=== PATIENT | male | born 1975 | race Caucasian/White ===

== ENCOUNTER 2020-05-31 11:12 | Emergency (ER) | payer OTHER ==
[2020-05-31 12:08] LABS: BASOPHILS % (AUTO) 0.3 %; EOSINOPHILS # (AUTO) 0.4 10^3/uL (0.0-0.7); EOSINOPHILS % (AUTO) 5.8 %; HGB - HEMOGLOBIN 14.4 g/dL (14.0-18.0); LYMPHOCYTES % (AUTO) 29.7 %; MEAN CORPUSCULAR HGB CONC 34.3 g/dL (32.0-36.0); MEAN CORPUSCULAR VOLUME 90.5 fL (80.0-94.0); MEAN PLATELET VOLUME 10.3 fL (7.4-11.4); MONOCYTES # (AUTO) 0.5 10^3/uL (0.0-1.0); MONOCYTES % (AUTO) 7.8 %; NEUTROPHILS # (AUTO) 3.7 10^3/uL (1.5-6.6); NEUTROPHILS % (AUTO) 56.1 %; PLT - PLATELET COUNT 234 10^3/uL (130-450); RED BLOOD COUNT 4.64 10^6/uL (4.70-6.10); RED CELL DISTRIBUTION WIDTH 12.8 % (12.0-15.0); WHITE BLOOD COUNT 6.6 x10^3/uL (4.8-10.8)
[2020-05-31 12:18] LABS: ALBUMIN 3.9 g/dL (3.2-5.5); ALBUMIN/GLOBULIN RATIO 1.2 (1.0-2.2); CALCIUM 9.1 mg/dL (8.5-10.3); TOTAL PROTEIN 7.2 g/dL (6.7-8.2)
--- NOTE | 2020-05-31 12:20 | XRAY Report ---
PROCEDURE: Chest 1 View X-Ray INDICATIONS: Chest Pain TECHNIQUE: One view of the chest was acquired. COMPARISON: None FINDINGS: Surgical changes and devices: None. Lungs and pleura: No pleural effusions or pneumothorax. Lungs are clear. Mediastinum: Mediastinal contours appear normal. Heart size is normal. Bones and chest wall: No suspicious bony lesions. Overlying soft tissues appear unremarkable. IMPRESSION: No acute cardiopulmonary process demonstrated radiographically. Reviewed by: Ash Mann MD on 05/31/2020 11:19 AM [facility] Approved by: Ash Mann MD on 05/31/2020 11:19 AM [facility] Station ID: [id number]
[2020-05-31] MEDS ORDERED: LIDOCAINE VISCOUS 2% 15 ML UDC MM STA (12:24)
[2020-05-31] MEDS ORDERED: MAG HYDROX/AL HYDROX/SIMETH 30 ML UDC PO STA (12:24)
--- NOTE | 2020-05-31 12:25 | ED Physician Documentation ---
PD HPI CHEST PAIN - Stated complaint Stated Complaint: CHEST PX - Chief complaint Chief Complaint: Cardiac - History obtained from History obtained from: Patient (44-year-old gentleman gets food stuck a lot in his esophagus. Today he was eating a banana and felt like he got stuck with retrosternal pressure. He tried to drink some water and then immediately vomited it back up. He feels a little better now. He is never had an upper endoscopy.) Review of Systems Ten Systems: 10 systems reviewed and negative Constitutional: denies: Fever, Chills Respiratory: denies: Dyspnea, Cough, Hemoptysis, Wheezing PD PAST MEDICAL HISTORY - Past Medical History Past Medical History: Yes Cardiovascular: High cholesterol Respiratory: Sleep apnea, CPAP use Psych: Depression - Past Surgical History Past Surgical History: Yes Ortho: Carpal Tunnel surgery HEENT: Myringotomy (tubes), Tonsil/Adenoidectomy - Present Medications Home Medications: Ambulatory Orders Medication Instructions Recorded Confirmed Aspirin 81 mg PO DAILY 01/25/20 05/31/20 Colchicine 0.6 mg PO TID #3 capsule 01/25/20 05/31/20 Loratadine [Claritin] 10 mg PO DAILY 01/25/20 05/31/20 Sertraline HCl [Zoloft] 150 mg PO DAILY 01/25/20 05/31/20 Topiramate [Topamax] 10 mg PO BID 01/25/20 05/31/20 busPIRone [Buspar] 150 mg PO BID 01/25/20 05/31/20 Omeprazole 40 mg PO DAILY #30 capsule. 05/31/20 - Allergies Allergies/Adverse Reactions: Allergies Allergy/AdvReac Type Severity Reaction Status Date / Time No Known Drug Allergies Allergy Verified 05/31/20 11:17 - Social History Does the pt smoke?: No Smoking Status: Never smoker Does the pt drink ETOH?: No Does the pt have substance abuse?: No - Immunizations Immunizations are current?: Yes - POLST Patient has POLST: No PD ED PE NORMAL - Vitals Vital signs reviewed: Yes - General General: Alert and oriented X 3, No acute distress - HEENT HEENT: PERRL, EOMI - Neck Neck: Supple, no meningeal sign, No bony TTP - Cardiac Cardiac: RRR, No murmur - Respiratory Respiratory: No respiratory distress, Clear bilaterally - Abdomen Abdomen: Non tender - Back Back: No CVA TTP, No spinal TTP - Derm Derm: Normal color, Warm and dry - Extremities Extremities: No edema, No calf tenderness / cord - Neuro Neuro: Alert and oriented X 3, Normal speech Results - Vitals Vitals: Vital Signs - 24 hr 05/31/20 05/31/20 05/31/20 11:17 11:41 12:01 Temperature 36.4 C L Heart Rate 85 81 81 Respiratory 18 17 20 Rate Blood Pressure 134/85 H 140/77 H 136/79 H O2 Saturation 96 97 95 Oxygen O2 Source Room air - EKG (time done) 1118 Rate: Rate (enter#) (82) Rhythm: NSR [place]: Normal Intervals: Normal OK QRS: Normal Ischemia: Non specific changes. No: ST elevation c/w ischemia, ST depression - Labs Labs: Laboratory Tests 05/31/20 05/31/20 05/31/20 11:55 11:55 11:55 WBC 6.6 RBC 4.64 L Hgb 14.4 Hct 42.0 MCV 90.5 MCH 31.0 MCHC 34.3 RDW 12.8 Plt Count 234 MPV 10.3 Neut # (Auto) 3.7 Lymph # (Auto) 2.0 [place] # (Auto) 0.5 Eos # (Auto) 0.4 Baso # (Auto) 0.0 Absolute Nucleated RBC 0.00 Nucleated RBC % 0.0 Sodium 137 Potassium 3.4 L Chloride 105 Carbon Dioxide 24 Anion Gap 8.0 BUN 18 Creatinine 1.0 Estimated GFR (MDRD) 81 L Glucose 153 H Calcium 9.1 Total Bilirubin 1.0 AST 24 ALT 29 Alkaline Phosphatase 59 Troponin I High Sens 2.5 Total Protein 7.2 Albumin 3.9 Globulin 3.3 Albumin/Globulin Ratio 1.2 Lipase 21 L PD MEDICAL DECISION MAKING - ED course ED course: 44-year-old gentleman with what sounds like an esophageal food impaction. He tolerated a GI cocktail followed by oral fluids here. This is a recurrent problem for him and discussed with him that he needs to follow-up for upper endoscopy. Departure - Departure Disposition: 01 Home, Self Care Clinical Impression: Esophageal disease Condition: Good Record reviewed to determine appropriate education?: Yes Instructions: ED Foreign Body Esophageal Rslv Follow-Up: Elisabeth Williamson MD [Provider Admit Priv/Credential] - Prescriptions: Omeprazole 40 mg PO DAILY #30 capsule. Comments: Seems reasonable to follow-up with a surgeon for consideration of upper endoscopy. Also I am going to put you on an antacid until then in case it stomach acid causing scarring. Call the surgeon today or tomorrow to arrange for an appointment.
[2020-05-31 13:24] VITALS: BP 147/83
== END 2020-05-31 13:15 | disposition home or self-care (01) ==
LOC: ED 11:12
DX: T18.128A Food in esophagus causing other injury, initial encounter (principal); X58.XXXA Exposure to other specified factors, initial encounter; R07.9 Chest pain, unspecified; Z79.82 Long term (current) use of aspirin
CPT/HCPCS: 71045; 80053; 83690; 84484; 85025; 93005; 99284; A9270

== ENCOUNTER 2020-08-12 14:44 | Outpatient (CLI) | payer OTHER, BC ==
--- NOTE | 2020-08-12 16:51 | XRAY Report ---
PROCEDURE: Shoulder 2 View LT INDICATIONS: LEFT SHOULDER PAIN TECHNIQUE: 2 views of the shoulder were acquired. COMPARISON: None. FINDINGS: Bones: No fractures or dislocations. No suspicious bony lesions. Visualized ribs appear intact. M ild periarticular osteophyte formation at the, clavicular joint. Severe periarticular osteophyte form ation at the glenohumeral joint with a large hook osteophyte extending inferiorly from the inferomedi al aspect of the humeral head, measuring 20 mm. Soft tissues: No suspicious soft tissue calcifications. IMPRESSION: Osteoarthritis associated with glenohumeral hook osteophyte. No acute fracture. No osseo us lesion. If symptoms and/or clinical suspicion for pathology continue, further assessment with repe at plain films, or advanced imaging (e.g., CT, MRI, or bone scan) is recommended for further assessme nt. Reviewed by: rFancy Castillo MD on 08/12/2020 4:49 PM PST Approved by: Francy Castillo MD on 08/12/2020 4:49 PM PST Station ID: [id number]
== END 2020-08-12 23:59 | disposition home or self-care (01) ==
LOC: DI.N 14:44
PROVIDERS: ATTEND Family Medicine
DX: S46.012A Strain of muscle(s) and tendon(s) of the rotator cuff of left shoulder, initial encounter (principal); M19.012 Primary osteoarthritis, left shoulder

== ENCOUNTER 2021-04-18 07:37 | Outpatient (CLI) | payer OTHER, BC ==
--- NOTE | 2021-04-18 11:03 | MRI Report ---
PROCEDURE: Shoulder LT W/O INDICATIONS: PAIN IN LEFT SHOULDER TECHNIQUE: Noncontrast oblique coronal T2 fast spin echo with fat saturation, oblique sagittal T1 spin echo and T2 fast spin echo with fat saturation, axial T1 spin echo and T2 fast spin echo with fat saturation t hrough the shoulder. COMPARISON: None. Findings: Supraspinatus: Mild to moderate tendinopathy with small partial articular surface tear (series 601, i mage 16). Infraspinatus: Mild to moderate tendinopathy with small partial articular surface tears (series 601, image 19). Subscapularis: Mild tendinopathy with interstitial tear. Teres minor: No evidence of tear. Labrum: Deficiency of the anterior labrum, compatible with remote tear/degenerative change. Biceps tendon: No evidence of subluxation or tear. Circumferential fluid signal, concerning for tenos ynovitis. Acromioclavicular joint: Normal alignment. Minimal arthrosis. Muscle: No significant atrophy. Bones: T2 hyperintense/T1 hypointense signal with contour irregularity and fibrocystic change of the glenoid, compatible with degenerative/remote traumatic injury. A large osteophyte extends from the inferior aspect of the humeral head. Miscellaneous: Small glenohumeral joint effusion, which ascends into the superior subscapularis recess. Trace subacromial/subdeltoid bursal fluid. No intra-articular bodies. Intact coracoclavicular ligament. IMPRESSION: 1. Kknk-[id number] supraspinatus and infraspinatus tendinopathy with small partial articular surface tears. 2. Mild subscapularis tendinopathy with interstitial tear. 3. Circumferential fluid of the biceps tendon, concerning for tenosynovitis. 4. Advanced osteoarthrosis of the glenohumeral articulation. Reviewed by: Gary Faust MD on 04/18/2021 11:02 AM PDT Approved by: Gary Faust MD on 04/18/2021 11:02 AM PDT Station ID: [id number]
== END 2021-04-18 07:38 | disposition home or self-care (01) ==
LOC: DI 07:37
PROVIDERS: ATTEND Nurse Practitioner Family
DX: M25.512 Pain in left shoulder (principal); M19.012 Primary osteoarthritis, left shoulder; M75.102 Unspecified rotator cuff tear or rupture of left shoulder, not specified as traumatic; S46.812A Strain of other muscles, fascia and tendons at shoulder and upper arm level, left arm, initial encounter

== ENCOUNTER 2021-08-18 08:00 | Outpatient (CLI) | payer BC, OTHER ==
[2021-08-18 18:05] LABS: BASOPHILS % (AUTO) 0.4 %; EOSINOPHILS # (AUTO) 0.3 10^3/uL (0.0-0.7); EOSINOPHILS % (AUTO) 4.3 %; HCT - HEMATOCRIT 46.7 % (42.0-52.0); HGB - HEMOGLOBIN 15.6 g/dL (14.0-18.0); LYMPHOCYTES # (AUTO) 2.1 10^3/uL (1.5-3.5); LYMPHOCYTES % (AUTO) 30.4 %; MEAN CORPUSCULAR HEMOGLOBIN 30.9 pg (27.0-31.0); MEAN CORPUSCULAR HGB CONC 33.4 g/dL (32.0-36.0); MEAN CORPUSCULAR VOLUME 92.5 fL (80.0-94.0); MEAN PLATELET VOLUME 10.9 fL (7.4-11.4); MONOCYTES # (AUTO) 0.5 10^3/uL (0.0-1.0); MONOCYTES % (AUTO) 6.6 %; PLT - PLATELET COUNT 257 10^3/uL (130-450); RED BLOOD COUNT 5.05 10^6/uL (4.70-6.10); RED CELL DISTRIBUTION WIDTH 12.6 % (12.0-15.0); WHITE BLOOD COUNT 6.8 x10^3/uL (4.8-10.8)
[2021-08-18 18:16] LABS: ALBUMIN 4.2 g/dL (3.2-5.5); ALBUMIN/GLOBULIN RATIO 1.2 (1.0-2.2); ALKALINE PHOSPHATASE 57 IU/L (42-121); ALT ALANINE AMINOTRANSFERASE 39 IU/L (10-60); AST ASPARTATE AMINOTRANSFERASE 26 IU/L (10-42); BILIRUBIN,TOTAL 0.6 mg/dL (0.2-1.0); BUN - BLOOD UREA NITROGEN 19 mg/dL (6-20); CALCIUM 9.3 mg/dL (8.5-10.3); CARBON DIOXIDE - CO2 29 mmol/L (21-32); CHLORIDE 103 mmol/L (101-111); CREATININE 0.9 mg/dL (0.6-1.2); GFR - MDRD 91 (>89); GLUCOSE 103 mg/dL (70-100); POTASSIUM 4.4 mmol/L (3.5-5.0); SODIUM 138 mmol/L (135-145); TOTAL PROTEIN 7.6 g/dL (6.7-8.2)
[2021-08-18 18:26] LABS: THYROID STIMULATING HORMONE 3.85 uIU/mL (0.34-5.60)
[2021-08-18 18:57] LABS: CRP - C-REACTIVE PROTEIN < 1.0 mg/dL (0-1.0)
[2021-08-18 20:33] LABS: ESTIMATED AVERAGE GLUCOSE 114 mg/dL (70-100); HEMOGLOBIN A1c% 5.6 % (4.27-6.07)
== END 2021-08-18 23:59 ==
LOC: LAB.N 08:00
PROVIDERS: ATTEND Registered Nurse
DX: I95.1 Orthostatic hypotension (principal); Z20.822 Contact with and (suspected) exposure to COVID-19
CPT/HCPCS: 36415; 80053; 83036; 84443; 85025; 85651; 86140

== ENCOUNTER 2022-07-03 14:20 | Outpatient (CLI) | payer BC, OTHER | END 2022-07-03 14:21 | disposition home or self-care (01) | LOC: SC 14:20 | PROVIDERS: ATTEND Nurse Practitioner Family | DX: G47.33 Obstructive sleep apnea (adult) (pediatric) (principal); R09.02 Hypoxemia; F32.A Depression, unspecified | CPT/HCPCS: 95806 ==

== ENCOUNTER 2022-07-07 15:59 | Outpatient (CLI) | payer BC, OTHER ==
--- NOTE | 2022-07-07 16:25 | SLEEP CARE CONSULTATION ---
Information from patient questionnaire entered by Ariane Vasquez. I have reviewed and concur with the information entered by Ariane Vasquez. This document represents the service I personally performed and the decisions made by me, Debbie Cleary ARNP. History of Present Illness Service Date and Time: 07/07/2022 1559 Initial [place] Sleepiness Scale score: 15 (06/02/2022) Current [place] Sleepiness Scale score: 17 (07/07/22) Additional HPI information: LU YEAGER returns for follow up and results of the recently performed home sleep study. I explained the pathophysiology behind obstructive sleep apnea. We then spent quite a bit of time discussing different treatment options. For mild obstructive sleep apnea, surgery and oral appliance are alternatives to nasal CPAP therapy but in moderate or severe cases, nasal CPAP is the most effective and reliable treatment. Because apnea is primarily in supine position, then positional management therapy could be effective. Methods discussed such as positioning with pillows to prevent supine sleep. I reviewed the impact of weight changes on sleep apnea and strongly recommended losing weight. After some discussion, the patient opted to go with the nasal CPAP therapy. Nasal autoCPAP set at 4-15 cmH20 will be ordered with rationale explained. A manual titration study will be ordered if unable to find optimal pressure with office adjustments. I explained how CPAP machine works and what to expect when using the machine. Using CPAP every night in order to get used to it was emphasized. Patient advised to put CPAP mask on before getting into bed so as not to fall asleep without CPAP. To assist acclimation to CPAP use, it could also be used for a short time during day while reading or watching TV. The patient was instructed to call the CPAP supplier to discuss any mechanical problem that may occur. If the mask given is uncomfortable or is difficult to keep on through the night even with adjustment, contact the CPAP supplier as many will replace with another mask style if notified before 30 days. If snoring or perceives is not getting enough air or too much air from the machine, notify this office. Patient counseled not drink alcohol less than 4 hours before bedtime as it can increase snoring and apnea. Patient was cautioned about risks of drowsy driving until sleepiness symptoms resolve. Sleep Study - Results Type of Sleep Study: Home sleep study (COMPLETED 07/03/22) Prior sleep studies: Yes ([employer] ) Year and Where: 2009 Polysomnography/Home Sleep Study results: Physician Impression: The quality of the study is good. The length of the study is adequate (> 240 minutes). Please also see the tabulated and graphic data. 1. Obstructive Sleep Apnea-Hypopnea (ICD-10 G47.33), moderate, with an AHI of 20.6/hr and ivis SaO2 of 80%. During the study, the patient had 47 apneas (47 obstructive, 0 central, 0 mixed) and 111 hypopneas. The longest episode lasted 102.5 seconds. The respiratory events occurred more frequently during supine sleep (supine AHI was 26.9 and non-supine, 5.72). 2. Hypoxemia (ICD-10 R09.02), mild, with the lowest oxygen saturation of 80 % and 31.0 minutes with SaO2 under 90%. Baseline oxygen saturation was normal (Average oxygen saturation was 92%). Allergies and Home Medications Drug allergies reviewed: Yes (NKDA) Home medication list reviewed: Yes (no changes) Review of Systems Review of systems same as previous: Yes (no changes) Physical Exam Vital signs obtained and entered by: ARIANE Bauman MA Blood Pressure: 122/70 (LEFT ARM) Cuff size: regular Heart Rate: 80 O2 Saturation: 96 Height: 6 ft 1 in Weight: 296 lb Body Mass Index: 39.0 BMI Classification: Obese Impression and Plan 1. Obstructive Sleep Apnea-Hypopnea Syndrome, moderate, with lowest oxygen saturation of 80%. Obviously this is the cause of the patients symptoms of unrefreshed sleep, and excessive daytime sleepiness. Positive pressure therapy could benefit depression and gastric reflux. As mentioned above, the patient will be started on nasal autoCPAP therapy with pressure set at 4-15 cmH2O. Compliance guidelines also reviewed. A copy of compliance guidelines will be given for reference at check out. Because the apnea is more severe supine, I instructed to avoid sleeping supine using pillow positioning until able to start CPAP use. * Nasal auto CPAP therapy, pressure at 4-15 cm H2O. * Attempt to lose weight. * Avoid alcohol consumption near bedtime. * Avoid supine sleep until using CPAP. * The patient is again cautioned about driving until sleepiness completely resolves. * Return one month after CPAP obtained. I will assess response to therapy and compliance at that time. Counseling Topics: Weight loss health impact Visit Type: In Office Time Spent with Patient (minutes): 20 Provider Statement: I spent 100% of the Face to Face Visit with the patient with greater than 50% spent counseling the patient and coordination of care.
[2022-07-07 16:28] VITALS: BP 122/70
== END 2022-07-07 16:00 | disposition home or self-care (01) ==
LOC: SC 15:59
PROVIDERS: ATTEND Nurse Practitioner Family
DX: G47.33 Obstructive sleep apnea (adult) (pediatric) (principal); E66.9 Obesity, unspecified; Z68.39 Body mass index [BMI] 39.0-39.9, adult
CPT/HCPCS: 99212; 99213

== ENCOUNTER 2022-09-20 16:23 | Outpatient (CLI) | payer BC, OTHER ==
--- NOTE | 2022-09-20 16:56 | SLEEP CARE CONSULTATION ---
Information from patient questionnaire entered by Stevie Vasquez. I have reviewed and concur with the information entered by Stevie Vasquez. This document represents the service I personally performed and the decisions made by me, Debbie Cleary ARNP. History of Present Illness Service Date and Time: 09/20/2022 1623 Previous diagnosis: Moderate, Obstructive Sleep Apnea-Hypopnea Syndrome AHI: 20.6 (in 2022) Reason for follow up: first compliance Equipment type: CPAP (RESMED Airsense 11, s/u 07/2022) Equipment obtained from: Other ([facility], getting supplies) Mask style: Full face Mask brand: Respironics (Dreamwear) Backup mask available: No (other mask) Last cushion change: 1 week Prior sleep studies: Yes ([employer] ) Year and Where: 2009 Type of Sleep Study: Home sleep study (COMPLETED 07/03/22) HPI additional information: LU YEAGER was diagnosed to have moderate, AHI 20.6, obstructive sleep apnea- hypopnea syndrome and returned today for CPAP therapy first compliance follow- up. Sleep Study - Results Type of Sleep Study: Home sleep study (COMPLETED 07/03/22) Prior sleep studies: Yes ([employer] ) Year and Where: 2009 CPAP Compliance Data - Data Reviewed with Patient Average duration of nightly device use: 5 HRS 43 MINS Compliance rate %: 80 (08/20/22-09/18/22; 28/30 days used) Current pressure setting (cmH2O): 4-15 (median 6.3, avg 8.9, max 10.1) Average residual AHI: 3.6 Central apnea: 0.3 Obstructive apnea: 1.8 Hypopnea: 1.4 Subjective Patient concerns: reports: mask leak noise, other (pressure/pain in right ear in last few weeks). denies: aerophagia, mask discomfort, air blowing in eyes, condensation in mask/hose, nasal congestion, dry mouth, nose, throat, epistaxis Observed to snore while using device: No Current pressure setting perceived as: comfortable On therapy, patient: reports: sleeping better, awakening more refreshed, being more awake and alert during the day, more rested overall. denies: drowsiness while driving Initial [place] Sleepiness Scale score: 15 (06/02/2022) Current [place] Sleepiness Scale score: 15 (09/20/22) Allergies and Home Medications Known drug allergies: No Drug allergies reviewed: Yes Home medication list reviewed: Yes (no changes) Allergy and home medication list: Allergies No Known Drug Allergies Allergy (Verified 09/19/22 16:08) Review of Systems Review of systems same as previous: No (right side ear pain) Physical Exam Vital signs obtained and entered by: STEVIE Bauman MA Blood Pressure: 126/82 (LEFT ARM) Cuff size: regular Heart Rate: 81 O2 Saturation: 98 Height: 6 ft 1 in (PER PT) Weight: 290 lb (PER PT) Body Mass Index: 38.2 BMI Classification: Obese Impression and Plan 1. Obstructive Sleep Apnea-Hypopnea Syndrome, moderate, with good treatment compliance and good apnea control. On CPAP therapy, the patient has better sleep quality and is more rested overall. He has been feeling like it is hard to breathe in mask at beginning of night. I will increase ramp starting pressure to 6 cmH2O for patient comfort. The patients pressure will be changed to autoCPAP 8-10 cmH20 to reflect pressures being used. Patient advised to contact me if pressure change is uncomfortable so that it can be adjusted. He has been having some pain in his right ear for last couple weeks. He states that he has year round allergies. I discussed with him that the increase in ear pressure could be some fluid in the inner ear causing increase in ear pressure. I advised him to try a decongestant with his antihistamines to reduce congestions. He may also use a nasal steroid spray to reduce inflammation. If he has no changes he may follow up with his PCP or an ENT specialist for further evaluation. He voiced understanding. Goals for apnea control discussed. Patient's apnea severity and rationale for treatment to reduce apnea, improve sleep quality and reduce cardiovascular and cerebrovascular events was reviewed. I also reviewed the benefit of consistent device use of CPAP for gastric reflux and depression. 2. Obesity, unspecified. Currently patients BMI is 38.2. Obesity increases the risk of apnea, CPAP pressure requirements and overall health risks especially cardiovascular and diabetes. Thus patient is advised to lose weight. * Change auto CPAP pressure to 8-10 cmH2O * Increase ramp starting pressure to 6 cmH2O * Notify me if snoring with mask or feeling that the pressure is too much or too little * Attempt to lose weight * Call this office if any problems using CPAP * Return for follow up in 1-2 months, or sooner if concerns arise Counseling Topics: Spare mask, Weight loss health impact Visit Type: In Office Time Spent with Patient (minutes): 22 Provider Statement: I spent 100% of the Face to Face Visit with the patient with greater than 50% spent counseling the patient and coordination of care.
[2022-09-20 16:57] VITALS: BP 126/82
== END 2022-09-20 16:24 | disposition home or self-care (01) ==
LOC: SC 16:23
PROVIDERS: ATTEND Nurse Practitioner Family
DX: G47.33 Obstructive sleep apnea (adult) (pediatric) (principal); E66.9 Obesity, unspecified; Z68.38 Body mass index [BMI] 38.0-38.9, adult
CPT/HCPCS: 99212; 99213

== ENCOUNTER 2022-11-08 00:06 | Emergency (ER) | payer BC, OTHER ==
--- NOTE | 2022-11-08 01:02 | XRAY Report ---
PROCEDURE: Chest 1 View X-Ray INDICATIONS: soa TECHNIQUE: One view of the chest was acquired. COMPARISON: Chest x-ray 09/30/2019. FINDINGS: Surgical changes and devices: None. Lungs and pleura: No pleural effusions or pneumothorax. Lungs are clear. Mediastinum: Mediastinal contours appear normal. Heart size is normal. Bones and chest wall: No suspicious bony lesions. Overlying soft tissues appear unremarkable. IMPRESSION: No acute cardiopulmonary disease. Reviewed by: López Estrada MD on 11/08/2022 1:01 AM PDT Approved by: López Estrada MD on 11/08/2022 1:01 AM PDT Station ID: [id number]
[2022-11-08 01:48] LABS: B. PARAPERTUSSIS- RESP PCR PAN NOT DETECTED; B. PERTUSSIS- RESP PCR PANEL NOT DETECTED; C. PNEUMONIAE- RESP PCR PANEL NOT DETECTED; CORONAVIRUS 229E-RESP PCR NOT DETECTED; CORONAVIRUS HKU1-RESP PCR NOT DETECTED; CORONAVIRUS NL63-RESP PCR NOT DETECTED; CORONAVIRUS OC43-RESP PCR NOT DETECTED; HUMAN METAPNEUMOVIRUS NOT DETECTED; INFLUENZA A- RESP PCR PANEL NOT DETECTED; INFLUENZA B - RESP PCR PANEL NOT DETECTED; M. PNEUMONIAE- RESP PCR PANEL NOT DETECTED; PARAINFLUENZA VIRUS 1 NOT DETECTED; PARAINFLUENZA VIRUS 2 NOT DETECTED; PARAINFLUENZA VIRUS 3 NOT DETECTED; PARAINFLUENZA VIRUS 4 NOT DETECTED; RHINOVIRUS/ENTEROVIRUS NOT DETECTED; RSV- RESP PCR PANEL NOT DETECTED; SARS-CoV-2 -RESP PCR PANEL NOT DETECTED
--- NOTE | 2022-11-08 05:11 | ED Physician Documentation ---
PD HPI DYSPNEA - Stated complaint Stated Complaint: SOA/COUGH/BLACKOUT - Chief complaint Chief Complaint: Resp - History obtained from History obtained from: Patient - Additional information Additional information: Patient c/o few days of cough, wheezing, mild dyspnea. Was recently prescribed albuterol (few weeks ago) by PMD, but this has not been providing symptomatic relief today. Denies fever. Cough is nonproductive. Review of Systems Constitutional: denies: Fever, Chills, Sweats Cardiac: denies: Chest pain / pressure, Palpitations, Pedal edema, Calf pain Respiratory: reports: Dyspnea, Cough, Wheezing. denies: Hemoptysis Musculoskeletal: denies: Extremity swelling PD PAST MEDICAL HISTORY - Past Medical History Cardiovascular: High cholesterol Respiratory: Sleep apnea, CPAP use Psych: Depression - Past Surgical History Past Surgical History: Yes Ortho: Carpal Tunnel surgery HEENT: Myringotomy (tubes), Tonsil/Adenoidectomy - Present Medications Home Medications: Ambulatory Orders Medication Instructions Recorded Confirmed Loratadine [Claritin] 10 mg PO DAILY 01/25/20 09/20/22 Sertraline HCl [Zoloft] 150 mg PO DAILY 01/25/20 09/20/22 Topiramate [Topamax] 10 mg PO BID 01/25/20 09/20/22 busPIRone [Buspar] 150 mg PO BID 01/25/20 09/20/22 Omeprazole 40 mg PO DAILY #30 capsule. 05/31/20 09/20/22 Ascorbic Acid [Vitamin C] See Rx Instructions .ROUTE .COMPLEX 06/02/22 09/20/22 Cetirizine [ZyrTEC] See Rx Instructions .ROUTE .COMPLEX 06/02/22 09/20/22 Cholecalciferol (Vitamin D3) See Rx Instructions .ROUTE .COMPLEX 06/02/22 09/20/22 [Vitamin D3] Multivit-Min/FA/Lycopen/Lutein See Rx Instructions .ROUTE .COMPLEX 06/02/22 09/20/22 [Centrum Silver Men Tablet] [place]-3/Dha/Epa/Fish Oil [Fish Oil See Rx Instructions .ROUTE .COMPLEX 06/02/22 09/20/22 1,000 mg Softgel] Rosuvastatin Calcium [Crestor] See Rx Instructions .ROUTE .COMPLEX 06/02/22 09/20/22 Ubidecarenone [Co Q-10] See Rx Instructions .ROUTE .COMPLEX 06/02/22 09/20/22 Benzonatate [Tessalon] 200 mg PO TID PRN #20 cap 11/08/22 predniSONE [Deltasone] 40 mg PO DAILY 3 Days #6 tablet 11/08/22 - Allergies Allergies/Adverse Reactions: Allergies Allergy/AdvReac Type Severity Reaction Status Date / Time No Known Drug Allergies Allergy Verified 11/08/22 00:26 - Social History Does the pt smoke?: No Smoking Status: Never smoker Does the pt drink ETOH?: No Does the pt have substance abuse?: No - Immunizations Immunizations are current?: Yes - POLST Patient has POLST: No PD ED PE NORMAL - Vitals Vital signs reviewed: Yes - General General: Alert and oriented X 3, No acute distress, Well developed/nourished - Cardiac Cardiac: RRR, No murmur - Respiratory Respiratory: No respiratory distress, Clear bilaterally Results - Vitals Vitals: Oxygen O2 Source Room air - Labs Labs: Laboratory Tests 11/08/22 00:49 Nasal Adenovirus (PCR) NOT DETECTED Nasal B. parapertussis DNA (PCR) NOT DETECTED Nasal Coronavir 229E PCR NOT DETECTED Nasal Coronavir HKU1 PCR NOT DETECTED Nasal Coronavir NL63 PCR NOT DETECTED Nasal Coronavir OC43 PCR NOT DETECTED Nasal Enterovir/Rhinovir PCR NOT DETECTED Nasal Influenza B PCR NOT DETECTED Nasal Influenza A PCR NOT DETECTED Nasal Parainfluen 1 PCR NOT DETECTED Nasal Parainfluen 2 PCR NOT DETECTED Nasal Parainfluen 3 PCR NOT DETECTED Nasal Parainfluen 4 PCR NOT DETECTED Nasal RSV (PCR) NOT DETECTED Nasal B.pertussis DNA PCR NOT DETECTED Nasal C.pneumoniae (PCR) NOT DETECTED [place] Human Metapneumo PCR NOT DETECTED Nasal M.pneumoniae (PCR) NOT DETECTED Nasal SARS-CoV-2 (PCR) NOT DETECTED - Rads (name of study) chest xray Relevant Findings:: Prelim report reviewed, EMP independent interpretation of test (I reviewed these images and my interpretation is no active/acute disease including no evidence of pneumonia, bronchitis, pneumothorax), See rad report PD Medical Decision Making - ED course Complexity details: reviewed results, considered differential, d/w patient ED course: Description of symptoms s/o bronchitis with bronchospasm. Lungs are CTA bilaterally with good airflow. Unremarkable CXR and respiratory PCR panel is negative for the viruses tested. Results reviewed with patient , return precautions discussed. Although his pulmonary exam is clear, given his description of cough s/o bronchospasm, he is given prednisone in ED and prescribed short course of QD prednisone. He is also given tessalon perles with rx for same Departure - Departure Disposition: 01 Home, Self Care Clinical Impression: Dyspnea Condition: Good Instructions: ED Dyspnea Shortness of Breath Prescriptions: predniSONE [Deltasone] 40 mg PO DAILY 3 Days #6 tablet Benzonatate [Tessalon] 200 mg PO TID PRN #20 cap PRN Reason: Cough Comments: There were no abnormalities on the chest x-ray, and the nasal swab was negative for the viruses that were tested (including COVID, influenza, RSV, and several other viruses). The cause of your symptoms is not apparent at this time. You are given a cough suppressant (Tessalon) and a steroid (prednisone) in the emergency department, and prescriptions for these medications have been electronically submitted to the [facility] pharmacy in [place]. Discharge Date/Time: 11/08/22 05:27
[2022-11-08 05:12] VITALS: BP 134/76
[2022-11-08] MEDS ORDERED: predniSONE 20 MG TABLET PO STA (05:20)
[2022-11-08] MEDS ORDERED: BENZONATATE 100 MG CAPSULE PO STA (05:20)
== END 2022-11-08 05:27 | disposition home or self-care (01) ==
LOC: ED 00:06
DX: R05.9 Cough, unspecified (principal); R06.2 Wheezing; R06.00 Dyspnea, unspecified; Z20.822 Contact with and (suspected) exposure to COVID-19
CPT/HCPCS: 71045; 87633; 99284; A9270; J7512

== ENCOUNTER 2022-11-17 15:27 | Outpatient (CLI) | payer BC, OTHER ==
--- NOTE | 2022-11-17 15:56 | Sleep Patient Instructions ---
Sleep Center Visit Summary - Patient Visit Information Reason for Visit: Two month follow up of CPAP therapy - Patient Instructions Additional Instructions: You were here for follow up of CPAP therapy. You will be continued on CPAP therapy with pressure at 5-7 cmH2O. Please let us know if the pressure change is uncomfortable and we can make further adjustments of the pressure. An order to look into Oral Appliance for sleep apnea treatment was given to you with a list of dentists in area. Please call us to let us know when to do the follow up once you have the oral appliance. You should follow up with sleep care in 3 months. You may contact us sooner for any questions or concerns. - Clinic Information Contact: [facility] [address] [place] [address] [email or web address] T: [phone]
--- NOTE | 2022-11-17 16:03 | SLEEP CARE CONSULTATION ---
Information from patient questionnaire entered by Ariane Vasquez. I have reviewed and concur with the information entered by Ariane Vasquez. This document represents the service I personally performed and the decisions made by , Debbie Cleary ARNP. History of Present Illness Service Date and Time: 11/17/2022 1527 Previous diagnosis: Moderate, Obstructive Sleep Apnea-Hypopnea Syndrome AHI: 20.6 (in 2022) Reason for follow up: other (2 MONTH F/U) Equipment type: CPAP (RESMED Airsense 11, s/u 07/2022) Equipment obtained from: Other ([facility], getting supplies) Mask style: Full face Mask brand: Respironics (Dreamwear) Backup mask available: Yes (other mask) Last cushion change: over a month Prior sleep studies: Yes ([facility] ) Year and Where: 2009 Type of Sleep Study: Home sleep study (COMPLETED 07/03/22) HPI additional information: LU YEAGER was diagnosed to have moderate, AHI 20.6, obstructive sleep apnea- hypopnea syndrome and returned today for CPAP therapy two month follow-up. Sleep Study - Results Type of Sleep Study: Home sleep study (COMPLETED 07/03/22) Prior sleep studies: Yes ([facility] ) Year and Where: 2009 CPAP Compliance Data - Data Reviewed with Patient Average duration of nightly device use: 5 hours 8 minutes Compliance rate %: 58 (45/60 days used) Current pressure setting (cmH2O): 8-10 Average residual AHI: 3.4 Central apnea: 0.3 Obstructive apnea: 1.7 Hypopnea: 1.3 Subjective Missed days of use due to: reports: other (sharp ear pain on right side when using CPAP) Patient concerns: reports: mask discomfort, air blowing in eyes, dry mouth, nose, throat. denies: aerophagia, mask leak noise, condensation in mask/hose, nasal congestion, epistaxis Observed to snore while using device: No Current pressure setting perceived as: comfortable On therapy, patient: denies: sleeping better, more rested overall, drowsiness while driving Initial [place] Sleepiness Scale score: 15 (06/02/2022) Current [place] Sleepiness Scale score: 18 (11/17/22) Allergies and Home Medications Known drug allergies: No Drug allergies reviewed: Yes Home medication list reviewed: Yes (no changes) Allergy and home medication list: Allergies No Known Drug Allergies Allergy (Verified 11/16/22 15:24) Review of Systems Review of systems same as previous: Yes (had right ear cleaned out and had some prednisone for inflammation) Physical Exam Vital signs obtained and entered by: ARIANE Bauman MA Blood Pressure: 128/80 (LEFT ARM) Cuff size: regular Heart Rate: 80 O2 Saturation: 98 Height: 6 ft 1 in (PER PT) Weight: 303 lb 6.4 oz Weight change since last visit: 13 lb gain Body Mass Index: 40.0 BMI Classification: Morbidly Obese Impression and Plan 1. Obstructive Sleep Apnea-Hypopnea Syndrome, moderate, with fair treatment compliance and good apnea control. Lu had continued to have sharp pain in his right ear when using the CPAP. He did see his primary and went to the walk in in [place]. They cleaned out his ear and gave him 5 days of oral steroid to reduce inflammation. He has also been using Flonase daily with no improvement of his ear pain when using the CPAP. I will reduce the pressure to see if this will reduce ear pain. The patients pressure will be changed to autoCPAP 5-7 cmH20 for patient comfort. Patient advised to contact me if pressure change is uncomfortable so that it can be adjusted. Goals for apnea control discussed. Also, after discussing other options, he was advised to sleep only on his sides when unable to use the CPAP since he had minimal elevation of sleep apnea on his sides when sleeping during his sleep study. He would also like to see if he could get an oral appliance covered by his insurance to treat his sleep apnea. He will be given a prescription and list of dentists in area to explore this option. If he still cannot tolerate CPAP use an oral appliance may be the best option for him. He was also advised that a visit with an ENT specialist could be beneficial for further evaluation of why he only gets pain in right ear with cpap use. He voiced understanding. Patient's apnea severity and rationale for treatment to reduce apnea, improve sleep quality and reduce cardiovascular and cerebrovascular events was reviewed. I also reviewed the benefit of consistent device use of CPAP for gastric reflux and depression. 2. Obesity, unspecified. Currently patients BMI is 40. Obesity increases the risk of apnea, CPAP pressure requirements and overall health risks especially cardiovascular and diabetes. Thus patient is advised to lose weight. * Change auto CPAP pressure to 5-7 cmH2O * Postional therapy when unable to use CPAP * Oral appliance * Notify me if snoring with mask or feeling that the pressure is too much or too little * Attempt to lose weight * Call this office if any problems using CPAP * Return for follow up in 3 months, or sooner if concerns arise Counseling Topics: Sleeping position, Spare mask, Weight loss health impact Prescriptions: Other (Oral appliance) Visit Type: In Office Time Spent with Patient (minutes): 23 Provider Statement: I spent 100% of the Face to Face Visit with the patient with greater than 50% spent counseling the patient and coordination of care.
[2022-11-17 16:10] VITALS: BP 128/80
== END 2022-11-17 15:28 | disposition home or self-care (01) ==
LOC: SC 15:27
PROVIDERS: ATTEND Nurse Practitioner Family
DX: G47.33 Obstructive sleep apnea (adult) (pediatric) (principal); E66.01 Morbid (severe) obesity due to excess calories; Z68.41 Body mass index [BMI] 40.0-44.9, adult
CPT/HCPCS: 99212; 99213

== ENCOUNTER 2023-03-31 15:09 | Emergency (ER) | payer BC, OTHER ==
--- NOTE | 2023-03-31 15:24 | ED Physician Documentation ---
PD HPI DYSPNEA - Stated complaint Stated Complaint: SOA - Chief complaint Chief Complaint: Resp - History obtained from History obtained from: Patient - History of Present Illness Timing - onset: How many days ago (has had increased dyspnea and feeling wheezing for several days increasing, but more notable just this afternoon without obvious environmental trigger and no URI symptoms. He used son's inhaler - improvement. He had prior albuterol and Flovent MDIs but ran out. PCP moved and awaiting new PCP appt.) Timing - onset during: Rest Timing - details: Gradual onset, Still present (lessened from MDI use earlier but still feeling wheezy.) Inciting event(s): Out of meds. No: URI, Immobilization/travel, Emotional event Associated symptoms: Wheezing. No: Fever, Cough, Hemoptysis, Chest pain / discomfort, Bilateral edema Similar symptoms before: Diagnosis (environmental allergies and he says he can't even mow the grass due to it. Has asthma with prior Rx of ALbuterol and FLovent that help. Takes antihistamines regualry as well. No apparent trigger today but ahs been out of Flovent for month or more due to change in PCP at his [facility].) Recently seen: Clinic (has been few months since last appt as his PCP left and awaiting new PCP appt.) Review of Systems Constitutional: denies: Fever, Chills Nose: reports: Rhinorrhea / runny nose, Congestion Throat: denies: Sore throat Cardiac: denies: Chest pain / pressure Respiratory: reports: Dyspnea, Wheezing. denies: Cough PD PAST MEDICAL HISTORY - Past Medical History Cardiovascular: High cholesterol Respiratory: Sleep apnea, CPAP use Psych: Depression - Past Surgical History Past Surgical History: Yes Ortho: Carpal Tunnel surgery HEENT: Myringotomy (tubes), Tonsil/Adenoidectomy - Present Medications Home Medications: Ambulatory Orders Medication Instructions Recorded Confirmed Loratadine [Claritin] 10 mg PO DAILY 01/25/20 03/09/23 Sertraline HCl [Zoloft] 150 mg PO DAILY 01/25/20 03/09/23 Topiramate [Topamax] 10 mg PO BID 01/25/20 03/09/23 busPIRone [Buspar] 150 mg PO BID 01/25/20 03/09/23 Omeprazole 40 mg PO DAILY #30 capsule. 05/31/20 03/09/23 Ascorbic Acid [Vitamin C] See Rx Instructions .ROUTE .COMPLEX 06/02/22 03/09/23 Cetirizine [ZyrTEC] See Rx Instructions .ROUTE .COMPLEX 06/02/22 03/09/23 Cholecalciferol (Vitamin D3) See Rx Instructions .ROUTE .COMPLEX 06/02/22 03/09/23 [Vitamin D3] Mv-Min/Folic/K1/Lycopen/Lutein See Rx Instructions .ROUTE .COMPLEX 06/02/22 03/09/23 [Centrum Silver Men Tablet] [place]-3/Dha/Epa/Fish Oil [Fish Oil See Rx Instructions .ROUTE .COMPLEX 06/02/22 03/09/23 1,000 mg Softgel] Rosuvastatin Calcium [Crestor] See Rx Instructions .ROUTE .COMPLEX 06/02/22 03/09/23 Ubidecarenone [Co Q-10] See Rx Instructions .ROUTE .COMPLEX 06/02/22 03/09/23 Benzonatate [Tessalon] 200 mg PO TID PRN #20 cap 11/08/22 03/09/23 predniSONE [Deltasone] 40 mg PO DAILY 3 Days #6 tablet 11/08/22 03/09/23 Albuterol Sulf [Ventolin Hfa 2 - 3 puffs INH QID #1 each 03/31/23 Inhaler] Fluticasone 220 Mcg [Flovent] 1 inh PO BID #12 gm 03/31/23 dexAMETHasone [Decadron] 4 mg PO DAILY #7 tablet 03/31/23 - Allergies Allergies/Adverse Reactions: Allergies Allergy/AdvReac Type Severity Reaction Status Date / Time No Known Drug Allergies Allergy Verified 03/31/23 15:21 - Social History Does the pt smoke?: No Smoking Status: Never smoker Does the pt drink ETOH?: No Does the pt have substance abuse?: No - Immunizations Immunizations are current?: Yes - POLST Patient has POLST: No PD ED PE NORMAL - Vitals Vital signs reviewed: Yes - General General: Alert and oriented X 3, No acute distress, Well developed/nourished - Cardiac Cardiac: RRR, No murmur - Respiratory Respiratory: No: Clear bilaterally (no coarse sounds nor fine crakles. He does have scattere exp wheezing diffusely. No work of breathing. ) - Derm Derm: Normal color, Warm and dry - Extremities Extremities: No edema, No calf tenderness / cord Results - Vitals Vitals: Oxygen O2 Source Room air PD Medical Decision Making - ED course Complexity details: considered differential, d/w patient ED course: 47-year-old who has had environmental allergies and takes antihistamines regularly for long-term and recently having dyspnea and wheezing diagnosed with likely environmental asthma. Had started on Flovent and albuterol and Abby which was useful. However his primary care provider left the clinic and he has not gotten into a new provider yet for refills of the medicines. He has been having wheezing periodically and shortness of breath with activity. No edema nor orthopnea. Today he had increased amount of dyspnea without any apparent trigger while at home. No recent cold or cough or fevers. He used his son inhaler which helped a lot. He is here now for concern of wanting prescription for his inhaler and resuming the oral steroids correction and inhaled steroids. Departure - Departure Disposition: Home, Self Care Clinical Impression: Dyspnea, Reactive airway disease, Environmental allergies Condition: Stable Record reviewed to determine appropriate education?: Yes Instructions: ED Dyspnea Shortness of Breath Follow-Up: [facility] [Provider Group] Prescriptions: dexAMETHasone [Decadron] 4 mg PO DAILY #7 tablet Fluticasone 220 Mcg [Flovent] 1 inh PO BID #12 gm Albuterol Sulf [Ventolin Hfa Inhaler] 2 - 3 puffs INH QID #1 each Comments: Your chest x-ray is clear with any signs of obvious infection, fluid, heart enlargement or fluid around the lungs. I did write a prescription for your albuterol inhaler 2 to 2 to 3 puffs 4 times daily for the next several days to week and then as needed. I also prescribed the fluticasone inhaler 220 mcg twice daily ongoing. I would use oral steroids initially for the first week to be more effective than the inhaled steroids at controlling her symptoms for now. I sent your prescriptions to your preferred pharmacy, [facility] in [place]. Follow-up with the [facility] clinic at the earliest opportunity. Forms: PCP List Discharge Date/Time: 03/31/23 16:28
[2023-03-31] MEDS ORDERED: dexAMETHasone 4 MG TABLET PO STA (15:37)
[2023-03-31] MEDS ORDERED: ALBUTEROL NEB 2.5 MG/3 ML INH STA (15:37)
--- OUTSIDE RECORDS SUMMARY | 2023-03-31 15:58 | EXTERNAL MEDICAL SUMMARY RPT | Continuity of Care Document ---
Author Name Unknown Address [address] [place] [address] Phone Organization [facility] Address [address] [place] [address] Phone Care Team Providers Care Lot Technician Name Role Phone Crew, Alessia Unavailable Unavailable Medications date description facility 2023-01-25 00[facility]00 [facility]23[facility]-25 00:00 Diclofenac S[facility] Problems date description facility 2023-01-25 00:00 Acute knee pain [facility] 2023-01-25 00:00 History of osteoarthritis [facility] 2023-02-22 14:59 Pain in left knee [facility] 2023-02-22 15:28 Pain in left knee [facility] Procedures date description facility 2023-01-25 00:00 XR knee LT [address] [place] [address] Social History date description facility 2023-01-25 00:00 Never smoked tobacco (finding) [facility] Vital Signs date measurement value units 2023-01-25 00:00 BMI 38.6 kg/m2 2023-01-25 00:00 BP_diastolic 86 mmHg 2023-01-25 00:00 BP_systolic 130 mmHg 2023-01-25 00:00 heart_rate 82 /min 2023-01-25 00:00 height_metric 185.42 cm 2023-01-25 00:00 height_standard 73 in 2023-01-25 00:00 o2_saturation 99 % 2023-01-25 00:00 respiration_rate 16 /min 2023-01-25 00:00 temperature_metric 36.5 C 2023-01-25 00:00 temperature_standard 97.7 F 2023-01-25 00:00 weight_metric 132.9 kg 2023-01-25 00:00 weight_standard 292.99 lb
--- NOTE | 2023-03-31 16:05 | XRAY Report ---
PROCEDURE: Chest 1 View X-Ray INDICATIONS: dyspnea/wheezing TECHNIQUE: One view of the chest was acquired. COMPARISON: 11/08/2022 FINDINGS: Surgical changes and devices: None. Lungs and pleura: An incomplete inspiratory result is noted, with low lung volumes and crowding of t he vascular markings. No focal infiltrates are seen. No large pneumothorax or large pleural effusion can be seen. Mediastinum: Mediastinal contours appear normal. Heart size is normal. Bones and chest wall: No suspicious bony lesions. Overlying soft tissues appear unremarkable. IMPRESSION: Portable chest within normal limits. Reviewed by: Carlos Eduardo Alvarado MD on 03/31/2023 3:04 PM DENNIS Approved by: Carlos Eduardo Alvarado MD on 03/31/2023 3:04 PM DENNIS Station ID: [id number]
[2023-03-31 16:07] VITALS: BP 104/77; O2SAT 98
== END 2023-03-31 16:28 | disposition home or self-care (01) ==
LOC: ED 15:09
DX: J45.909 Unspecified asthma, uncomplicated (principal); J30.2 Other seasonal allergic rhinitis
CPT/HCPCS: 71045; 94640; 99283; 99284; J8540

== ENCOUNTER 2023-11-02 20:13 | Outpatient (CLI) | payer BC, OTHER | END 2023-11-02 23:59 | disposition critical access hospital (66) | LOC: EMS 20:13 | DX: T39.1X2A Poisoning by 4-Aminophenol derivatives, intentional self-harm, initial encounter (principal) | CPT/HCPCS: A0425; A0429 ==

== ENCOUNTER 2023-11-02 20:29 | Emergency (ER) | payer BC, OTHER ==
[2023-11-02 21:23] LABS: BASOPHILS % (AUTO) 0.4 %; EOSINOPHILS # (AUTO) 0.3 10^3/uL (0.0-0.7); HCT - HEMATOCRIT 41.6 % (42.0-52.0); LYMPHOCYTES # (AUTO) 2.6 10^3/uL (1.5-3.5); LYMPHOCYTES % (AUTO) 36.6 %; MEAN CORPUSCULAR HEMOGLOBIN 29.7 pg (27.0-31.0); MEAN CORPUSCULAR HGB CONC 33.7 g/dL (32.0-36.0); MEAN CORPUSCULAR VOLUME 88.3 fL (80.0-94.0); MEAN PLATELET VOLUME 10.7 fL (7.4-11.4); MONOCYTES # (AUTO) 0.6 10^3/uL (0.0-1.0); MONOCYTES % (AUTO) 8.5 %; NEUTROPHILS # (AUTO) 3.6 10^3/uL (1.5-6.6); NEUTROPHILS % (AUTO) 50.2 %; PLT - PLATELET COUNT 222 10^3/uL (130-450); RED BLOOD COUNT 4.71 10^6/uL (4.70-6.10); RED CELL DISTRIBUTION WIDTH 13.6 % (12.0-15.0); WHITE BLOOD COUNT 7.2 x10^3/uL (4.8-10.8)
--- NOTE | 2023-11-02 21:41 | ED Physician Documentation ---
History of Present Illness - Stated complaint Stated Complaint: OD/SI - Chief complaint Chief Complaint: MHE - History obtained from History obtained from: Patient - Additonal information Additional information: 47yM with pmh depression on zoloft 100mg daily p/w attempted overdose today after taking 18 5-325mg percoset in a suicide attempt. patient states he has had passive SI in the past but never attempted suicide. 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 also has had argument with . denies hi or avh. currently has no further plan for taking his own life. PD PAST MEDICAL HISTORY - Past Medical History Cardiovascular: High cholesterol Respiratory: Sleep apnea, CPAP use Psych: Depression - Past Surgical History Past Surgical History: Yes Ortho: Carpal Tunnel surgery HEENT: Myringotomy (tubes), Tonsil/Adenoidectomy - Present Medications Home Medications: Ambulatory Orders Medication Instructions Recorded Confirmed Loratadine [Claritin] 10 mg PO DAILY 01/25/20 03/09/23 Sertraline HCl [Zoloft] 150 mg PO DAILY 01/25/20 03/09/23 Topiramate [Topamax] 10 mg PO BID 01/25/20 03/09/23 busPIRone [Buspar] 150 mg PO BID 01/25/20 03/09/23 Omeprazole 40 mg PO DAILY #30 capsule. 05/31/20 03/09/23 Ascorbic Acid [Vitamin C] See Rx Instructions .ROUTE .COMPLEX 06/02/22 03/09/23 Cetirizine [ZyrTEC] See Rx Instructions .ROUTE .COMPLEX 06/02/22 03/09/23 Cholecalciferol (Vitamin D3) See Rx Instructions .ROUTE .COMPLEX 06/02/22 03/09/23 [Vitamin D3] Mv-Min/Folic/K1/Lycopen/Lutein See Rx Instructions .ROUTE .COMPLEX 06/02/22 03/09/23 [Centrum Silver Men Tablet] [place]-3/Dha/Epa/Fish Oil [Fish Oil See Rx Instructions .ROUTE .COMPLEX 06/02/22 03/09/23 1,000 mg Softgel] Rosuvastatin Calcium [Crestor] See Rx Instructions .ROUTE .COMPLEX 06/02/22 03/09/23 Ubidecarenone [Co Q-10] See Rx Instructions .ROUTE .COMPLEX 06/02/22 03/09/23 Benzonatate [Tessalon] 200 mg PO TID PRN #20 cap 11/08/22 03/09/23 predniSONE [Deltasone] 40 mg PO DAILY 3 Days #6 tablet 11/08/22 03/09/23 Albuterol Sulf [Ventolin Hfa 2 - 3 puffs INH QID #1 each 03/31/23 Inhaler] Fluticasone 220 Mcg [Flovent] 1 inh PO BID #12 gm 03/31/23 dexAMETHasone [Decadron] 4 mg PO DAILY #7 tablet 03/31/23 Levothyroxine Sodium [Synthroid] 50 mcg PO BID #60 tablet 11/03/23 - Allergies Allergies/Adverse Reactions: Allergies Allergy/AdvReac Type Severity Reaction Status Date / Time No Known Drug Allergies Allergy Verified 11/02/23 20:40 - Social History Does the pt smoke?: No Smoking Status: Never smoker Does the pt drink ETOH?: No Does the pt have substance abuse?: No - Immunizations Immunizations are current?: Yes - POLST Patient has POLST: No PD ED PE NORMAL - Vitals Vital signs reviewed: Yes - General General: Alert and oriented X 3, No acute distress, Well developed/nourished, Other (large body habitus) - HEENT HEENT: Atraumatic, PERRL, EOMI - Neck Neck: Supple, no meningeal sign - Cardiac Cardiac: RRR - Respiratory Respiratory: No respiratory distress, Clear bilaterally - Abdomen Abdomen: Non tender, Non distended - Derm Derm: Normal color, Warm and dry - Psych Psych: Normal mood, Normal affect Results - Vitals Vitals: Vital Signs - 24 hr 11/02/23 11/02/23 11/02/23 20:41 20:49 21:19 Temperature 36.4 C L Heart Rate 80 87 80 Respiratory 16 16 14 Rate Blood Pressure 161/100 H 161/106 H 131/89 H O2 Saturation 98 93 92 11/02/23 11/02/23 11/02/23 21:30 22:00 22:30 Temperature Heart Rate 78 87 78 Respiratory 17 12 14 Rate Blood Pressure 127/87 H 130/91 H 132/92 H O2 Saturation 93 95 94 11/02/23 11/03/23 23:00 02:31 Temperature Heart Rate 78 80 Respiratory 12 12 Rate Blood Pressure 149/99 H 135/94 H O2 Saturation 92 94 Oxygen O2 Source Room air - EKG (time done) 6 EKG releavant findings:: EKG personally interpreted by author of this note. Relevant findings are: Rate: Rate (enter#) (80) Rhythm: NSR [place]: Normal Intervals: Normal AL, Other (normal qt/qtc) QRS: Normal Ischemia: ST elevation c/w repol - Labs Labs: Laboratory Tests 11/02/23 11/02/23 11/02/23 21:02 21:02 22:37 WBC 7.2 RBC 4.71 Hgb 14.0 Hct 41.6 L MCV 88.3 MCH 29.7 MCHC 33.7 RDW 13.6 Plt Count 222 MPV 10.7 Neut # (Auto) 3.6 Lymph # (Auto) 2.6 Wood # (Auto) 0.6 Eos # (Auto) 0.3 Baso # (Auto) 0.0 Absolute Nucleated RBC 0.00 Nucleated RBC % 0.0 Sodium 136 Potassium 3.8 Chloride 102 Carbon Dioxide 27 Anion Gap 7.0 BUN 17 Creatinine 1.0 Estimated GFR (MDRD) 80 L Glucose 99 Calcium 9.2 Magnesium 1.7 Total Bilirubin 0.4 AST 27 ALT 44 Alkaline Phosphatase 55 Total Creatine Kinase 140 Total Protein 6.8 Albumin 3.8 Globulin 3.0 Albumin/Globulin Ratio 1.3 Lipase 42 TSH 8.76 H Free T4 Direct 0.75 Thyroxine (T4) 5.4 L Free T3 pg/mL 3.98 H Total T3 1.12 T3 Uptake 44 Urine Color Urine Clarity Urine pH Ur Specific [place] Urine Protein Urine Glucose (UA) Urine Ketones Urine Occult Blood Urine Nitrite Urine Bilirubin Urine Urobilinogen Ur Leukocyte Esterase Ur Microscopic Review Urine Culture Comments Salicylates < 1.5 Urine Opiates Screen Ur Buprenorphine Scrn Ur Oxycodone Screen Urine Methadone Screen Acetaminophen 12.7 28.0 Ur Barbiturates Screen Ur Tricyclics Screen Ur Phencyclidine Scrn Ur Amphetamine Screen U Methamphetamines Scrn U Benzodiazepines Scrn Urine Cocaine Screen U Cannabinoids Screen Ur Drug Screen Comment Ethyl Alcohol < 10.0 11/03/23 04:56 WBC RBC Hgb Hct MCV MCH MCHC RDW Plt Count MPV Neut # (Auto) Lymph # (Auto) Wood # (Auto) Eos # (Auto) Baso # (Auto) Absolute Nucleated RBC Nucleated RBC % Sodium Potassium Chloride Carbon Dioxide Anion Gap BUN Creatinine Estimated GFR (MDRD) Glucose Calcium Magnesium Total Bilirubin AST ALT Alkaline Phosphatase Total Creatine Kinase Total Protein Albumin Globulin Albumin/Globulin Ratio Lipase TSH Free T4 Direct Thyroxine (T4) Free T3 pg/mL Total T3 T3 Uptake Urine Color YELLOW Urine Clarity CLEAR Urine pH 5.5 Ur Specific [place] >=1.030 H Urine Protein NEGATIVE Urine Glucose (UA) NEGATIVE Urine Ketones NEGATIVE Urine Occult Blood NEGATIVE Urine Nitrite NEGATIVE Urine Bilirubin NEGATIVE Urine Urobilinogen 0.2 (NORMAL) Ur Leukocyte Esterase NEGATIVE Ur Microscopic Review NOT INDICATED Urine Culture Comments NOT INDICATED Salicylates Urine Opiates Screen NEGATIVE Ur Buprenorphine Scrn NEGATIVE Ur Oxycodone Screen POSITIVE H Urine Methadone Screen NEGATIVE Acetaminophen Ur Barbiturates Screen NEGATIVE Ur Tricyclics Screen NEGATIVE Ur Phencyclidine Scrn NEGATIVE Ur Amphetamine Screen NEGATIVE U Methamphetamines Scrn NEGATIVE U Benzodiazepines Scrn NEGATIVE Urine Cocaine Screen NEGATIVE U Cannabinoids Screen NEGATIVE Ur Drug Screen Comment CUTOFF CONC BELOW: Ethyl Alcohol PD Medical Decision Making - ED course ED course: Note TSH 8.76, which is elevated above the normal. Further thyroid studies have been ordered. Poison control was contacted and plan is to repeat APAP level at 4 hours postingestion. APAP repeat level sub -toxic dose. Labwork benign aside from hypothyroidism on labs (high TSH, low total T4). Patient medically cleared at this time. He denies active SI at this time. Social work to see the patient in the AM since telepsych was unavailable overnight due to patient not giving urine sample until late. Patient endorsed to daytime ED MD at 7am shift change Departure - Departure Clinical Impression: Hypothyroidism, Depression Condition: Stable Instructions: ED Hypothyroidism Prescriptions: Levothyroxine Sodium [Synthroid] 50 mcg PO BID #60 tablet Comments: You were seen in the emergency department for depressive symptoms. Your screening labs uncovered that you have hypothyroidism which can be a major contributor to depression. A prescription for synthroid, a thyroid medication, was [facility] to [facility]. Please follow-up with your primary care provider to recheck your thyroid levels in 1-2 weeks and return to the emergency department if you have any new or worsening symptoms or other concerns. Forms: PCP List
[2023-11-02 21:48] LABS: ACETAMINOPHEN 12.7 ug/mL; ALBUMIN 3.8 g/dL (3.2-5.5); ALBUMIN/GLOBULIN RATIO 1.3 (1.0-2.2); ALKALINE PHOSPHATASE 55 IU/L (42-121); ALT ALANINE AMINOTRANSFERASE 44 IU/L (10-60); AST ASPARTATE AMINOTRANSFERASE 27 IU/L (10-42); BILIRUBIN,TOTAL 0.4 mg/dL (0.2-1.0); BUN - BLOOD UREA NITROGEN 17 mg/dL (6-20); CALCIUM 9.2 mg/dL (8.5-10.3); CARBON DIOXIDE - CO2 27 mmol/L (21-32); CHLORIDE 102 mmol/L (101-111); CK- CREATINE KINASE 140 IU/L (30-223); ETOH - ETHANOL < 10.0 mg/dL; GFR - MDRD 80 (>89); GLUCOSE 99 mg/dL (74-104); LIPASE 42 U/L (11-82); MAGNESIUM 1.7 mg/dL (1.7-2.3); POTASSIUM 3.8 mmol/L (3.5-4.5); SALICYLATE < 1.5 mg/dL; SODIUM 136 mmol/L (135-145); TOTAL PROTEIN 6.8 g/dL (6.4-8.9)
[2023-11-02 21:53] LABS: THYROID STIMULATING HORMONE 8.76 uIU/mL (0.34-5.60)
[2023-11-03 05:27] LABS: BILIRUBIN,URINE NEGATIVE (NEGATIVE); GLUCOSE, URINE (UA) NEGATIVE (NEGATIVE); KETONES,URINE (UA) NEGATIVE (NEGATIVE); LEUKOCYTE ESTERASE, URINE NEGATIVE (NEGATIVE); NITRITE,URINE NEGATIVE (NEGATIVE); OCCULT BLOOD,URINE NEGATIVE (NEGATIVE); PH,URINE 5.5 PH (5.0-7.5); PROTEIN,URINE NEGATIVE (NEGATIVE); UROBILINOGEN,URINE 0.2 (NORMAL) E.U./dL (NORMAL)
[2023-11-03 05:32] LABS: CLARITY,URINE CLEAR (CLEAR)
[2023-11-03 06:01] LABS: AMPHETAMINE SCREEN,URINE NEGATIVE (NEGATIVE); BARBITURATE SCREEN,UR NEGATIVE (NEGATIVE); BENZODIAZEPINES SCREEN, URINE NEGATIVE (NEGATIVE); COCAINE SCREEN URINE NEGATIVE (NEGATIVE); METHADONE SCREEN, URINE NEGATIVE (NEGATIVE); METHAMPHETAMINES SCREEN, URINE NEGATIVE (NEGATIVE); OPIATE SCREEN, URINE NEGATIVE (NEGATIVE); THC CANNABINOID SCREEN, URINE NEGATIVE (NEGATIVE); TRICYCLIC ANTIDEPRESSANT,URINE NEGATIVE (NEGATIVE)
[2023-11-03 06:02] LABS: BUPRENORPHINE SCREEN, URINE NEGATIVE (NEGATIVE); OXYCODONE SCREEN, URINE POSITIVE (NEGATIVE)
[2023-11-03] MEDS: CETIRIZINE 10 MG TABLET PO STA (15:56)
[2023-11-03] MEDS: SERTRALINE 50 MG TABLET PO STA (15:56)
[2023-11-03] MEDS: LORATADINE 10 MG TABLET PO STA (16:04)
--- NOTE | 2023-11-03 18:39 | ED Physician Documentation ---
ED Addendum - Addendum Addendum: 11/03/23 18:32 The patient has been stable through the day. He had breakfast earlier and lunch without any complications. He has been compliant and conversant and polite with the staff. He did talk with telepsychiatry who felt the patient was still at risk for self- harm even though he did not have suicidal plans per se at this point but was still having feelings of depression and passive suicidal feelings. As such they talked with him and shared decision was for voluntary admission to the hospital. At this point we have not heard of any placement as yet. The search is still on by the service for voluntary placement. Given your report is here and does state that they feel the patient is at risk such that if you were to change his view from voluntary and wanted to be discharged, that reassessment should take place for safety planning and reevaluation for potential involuntary.
--- NOTE | 2023-11-03 19:20 | ED Physician Documentation ---
ED Addendum - Addendum Addendum: 11/03/23 19:20 A repeat EKG was demanded by the psychiatrist at the [facility]. No reasoning given for a repeat EKG other than they would not consider transfer for this patient without one. Therefore a new EKG was performed and remains normal. Results - Vitals Vitals: Vital Signs - 24 hr 11/02/23 11/02/23 11/02/23 20:41 20:49 21:19 Temperature 36.4 C L Heart Rate 80 87 80 Respiratory 16 16 14 Rate Blood Pressure 161/100 H 161/106 H 131/89 H O2 Saturation 98 93 92 11/02/23 11/02/23 11/02/23 21:30 22:00 22:30 Temperature Heart Rate 78 87 78 Respiratory 17 12 14 Rate Blood Pressure 127/87 H 130/91 H 132/92 H O2 Saturation 93 95 94 11/02/23 11/03/23 11/03/23 23:00 02:31 10:24 Temperature Heart Rate 78 80 89 Respiratory 12 12 14 Rate Blood Pressure 149/99 H 135/94 H 132/90 H O2 Saturation 92 94 97 11/03/23 19:16 Temperature 36.7 C Heart Rate 91 Respiratory 16 Rate Blood Pressure 165/90 H O2 Saturation 97 Oxygen O2 Source Room air - EKG (time done) 1913 EKG releavant findings:: EKG personally interpreted by author of this note. Relevant findings are: Rate: Rate (enter#) (78) Rhythm: NSR [place]: Normal Intervals: Normal ID QRS: Normal Ischemia: Normal ST segments - Labs Labs: Laboratory Tests 11/02/23 11/02/23 11/02/23 21:02 21:02 22:37 WBC 7.2 RBC 4.71 Hgb 14.0 Hct 41.6 L MCV 88.3 MCH 29.7 MCHC 33.7 RDW 13.6 Plt Count 222 MPV 10.7 Neut # (Auto) 3.6 Lymph # (Auto) 2.6 [place] # (Auto) 0.6 Eos # (Auto) 0.3 Baso # (Auto) 0.0 Absolute Nucleated RBC 0.00 Nucleated RBC % 0.0 Sodium 136 Potassium 3.8 Chloride 102 Carbon Dioxide 27 Anion Gap 7.0 BUN 17 Creatinine 1.0 Estimated GFR (MDRD) 80 L Glucose 99 Calcium 9.2 Magnesium 1.7 Total Bilirubin 0.4 AST 27 ALT 44 Alkaline Phosphatase 55 Total Creatine Kinase 140 Total Protein 6.8 Albumin 3.8 Globulin 3.0 Albumin/Globulin Ratio 1.3 Lipase 42 TSH 8.76 H Free T4 Direct 0.75 Thyroxine (T4) 5.4 L Free T3 pg/mL 3.98 H Total T3 1.12 T3 Uptake 44 Urine Color Urine Clarity Urine pH Ur Specific [place] Urine Protein Urine Glucose (UA) Urine Ketones Urine Occult Blood Urine Nitrite Urine Bilirubin Urine Urobilinogen Ur Leukocyte Esterase Ur Microscopic Review Urine Culture Comments Salicylates < 1.5 Urine Opiates Screen Ur Buprenorphine Scrn Ur Oxycodone Screen Urine Methadone Screen Acetaminophen 12.7 28.0 Ur Barbiturates Screen Ur Tricyclics Screen Ur Phencyclidine Scrn Ur Amphetamine Screen U Methamphetamines Scrn U Benzodiazepines Scrn Urine Cocaine Screen U Cannabinoids Screen Ur Drug Screen Comment Ethyl Alcohol < 10.0 SARS-CoV-2 (PCR) 11/03/23 11/03/23 04:56 15:04 WBC RBC Hgb Hct MCV MCH MCHC RDW Plt Count MPV Neut # (Auto) Lymph # (Auto) [place] # (Auto) Eos # (Auto) Baso # (Auto) Absolute Nucleated RBC Nucleated RBC % Sodium Potassium Chloride Carbon Dioxide Anion Gap BUN Creatinine Estimated GFR (MDRD) Glucose Calcium Magnesium Total Bilirubin AST ALT Alkaline Phosphatase Total Creatine Kinase Total Protein Albumin Globulin Albumin/Globulin Ratio Lipase TSH Free T4 Direct Thyroxine (T4) Free T3 pg/mL Total T3 T3 Uptake Urine Color YELLOW Urine Clarity CLEAR Urine pH 5.5 Ur Specific [place] >=1.030 H Urine Protein NEGATIVE Urine Glucose (UA) NEGATIVE Urine Ketones NEGATIVE Urine Occult Blood NEGATIVE Urine Nitrite NEGATIVE Urine Bilirubin NEGATIVE Urine Urobilinogen 0.2 (NORMAL) Ur Leukocyte Esterase NEGATIVE Ur Microscopic Review NOT INDICATED Urine Culture Comments NOT INDICATED Salicylates Urine Opiates Screen NEGATIVE Ur Buprenorphine Scrn NEGATIVE Ur Oxycodone Screen POSITIVE H Urine Methadone Screen NEGATIVE Acetaminophen Ur Barbiturates Screen NEGATIVE Ur Tricyclics Screen NEGATIVE Ur Phencyclidine Scrn NEGATIVE Ur Amphetamine Screen NEGATIVE U Methamphetamines Scrn NEGATIVE U Benzodiazepines Scrn NEGATIVE Urine Cocaine Screen NEGATIVE U Cannabinoids Screen NEGATIVE Ur Drug Screen Comment CUTOFF CONC BELOW: Ethyl Alcohol SARS-CoV-2 (PCR) NOT DETECTED
[2023-11-03 21:28] VITALS: O2SAT 94
--- NOTE | 2023-11-03 21:36 | ED Physician Documentation ---
ED Addendum - Addendum Addendum: 11/03/23 21:35 Patient is accepted by the [facility]. Bruna Chang is the accepting provider. COBRA forms completed. Patient will be transferred. Departure - Departure Disposition: [facility]Unit DC/Xfer Clinical Impression: Hypothyroidism Qualifiers: Hypothyroidism type: unspecified Qualified Code(s): E03.9 - Hypothyroidism, u nspecified Depression Qualifiers: Depression Type: unspecified Qualified Code(s): F32.A - Depression, unspecified Condition: Stable Instructions: ED Hypothyroidism Comments: You were seen in the emergency department for depressive symptoms. Your screening labs uncovered that you have hypothyroidism which can be a major contributor to depression. A prescription for synthroid, a thyroid medication, was [facility] to [facility]. Please follow-up with your primary care provider to recheck your thyroid levels in 1-2 weeks and return to the emergency department if you have any new or worsening symptoms or other concerns. Forms: PCP List
[2023-11-04] MEDS: IBUPROFEN 600 MG TABLET PO STA (00:06)
[2023-11-04 00:19] VITALS: BP 125/80
== END 2023-11-04 00:12 ==
LOC: ED 20:29
DX: T40.2X2A Poisoning by other opioids, intentional self-harm, initial encounter (principal); R45.851 Suicidal ideations; F32.A Depression, unspecified; E03.9 Hypothyroidism, unspecified; R94.31 Abnormal electrocardiogram [ECG] [EKG]; Z11.52 Encounter for screening for COVID-19; Z63.0 Problems in relationship with spouse or partner; Z63.9 Problem related to primary support group, unspecified; Z81.8 Family history of other mental and behavioral disorders
CPT/HCPCS: 36415; 80053; 80143; 80179; 80306; 81003; 82077; 82550; 83690; 83735; 84436; 84439; 84443; 84479; 84480; 84481; 84482; 85025; 87635; 90834; 93005; 99285; A9270; Q3014; 81001; 87086